=== PATIENT | male | born 1980 | race Caucasian/White ===

== ENCOUNTER 2019-05-29 21:22 | Emergency (ER) | payer OTHER ==
--- NOTE | 2019-05-29 22:03 | EDM.PDOC ---
ED HPI GENERAL MEDICAL PROBLEM - General Chief Complaint: General Stated Complaint: CHICKEN BONE IN THROAT Time Seen by Provider: 05/29/19 21:30 Source of Information: Reports: Patient History Limitations: Reports: Intoxication - History of Present Illness INITIAL COMMENTS - FREE TEXT/NARRATIVE: 39-year-old male presents to the emergency room with complaints of feeling like a chicken bone is stuck in his throat. He rates up earlier tonight and felt like a small chicken bone lodged in his throat. Patient has obviously been drinking quite heavily he admitted to the nurse earlier today that he has had at least 12 beers. His speech is slurred. He is cooperative. He denies any difficulties breathing, no shortness of breath. Onset: Today Duration: Constant Location: Reports: Neck Quality: Reports: Sharp Severity: Mild Improves with: Reports: None Worsens with: Reports: None Associated Symptoms: Reports: No Other Symptoms - Related Data Allergies Allergy/AdvReac Type Severity Reaction Status Date / Time amoxicillin Allergy Cannot Verified 05/29/19 21:26 Remember Social & Family History - Tobacco Use Smoking Status *Q: Current Every Day Smoker Years of Tobacco use: 20 Packs/Tins Daily: 2.5 - Caffeine Use Caffeine Use: Reports: Coffee - Alcohol Use Days Per Week of Alcohol Use: 7 Number of Drinks Per Day: 12 Total Drinks Per Week: 84 - Recreational Drug Use Recreational Drug Use: Yes ED ROS GENERAL - Review of Systems Review Of Systems: ROS reveals no pertinent complaints other than HPI. ED EXAM, GENERAL - Physical Exam Exam: See Below Exam Limited By: Intoxication General Appearance: Alert, WD/WN, No Apparent Distress Ears: Hearing Grossly Normal Throat/Mouth: Normal Inspection, Normal Lips, Normal Teeth, Normal Gums, Normal Oropharynx, Normal Voice, No Airway Compromise, Other (No evidence of foreign body is visualized in the back of the oropharynx.) Head: Atraumatic, Normocephalic Neck: Normal Inspection, Supple Respiratory/Chest: Lungs Clear Cardiovascular: Regular Rate, Rhythm Course - Vital Signs Last Recorded V/S: Last Vital Signs Temp 97.2 F 05/29/19 21:33 Pulse 90 05/29/19 21:33 Resp 16 05/29/19 21:33 BP 126/77 05/29/19 21:33 Pulse Ox 98 05/29/19 21:33 Departure - Departure Time of Disposition: 22:06 Disposition: Home, Self-Care 01 Condition: Good Clinical Impression: Foreign body sensation in throat - Discharge Information Instructions: Swallowed Foreign Body, Adult, [id number] Forms: ED Department Discharge - Assessment/Plan Assessment:: Foreign body sensation of the throat Plan: 1. Observation, patient is not experiencing any obstruction or breathing problems. If foreign body sensation continues into next week he will likely need to be seen by general surgeon for possible endoscopy. 2. His primary care is at [facility] and recommend routine follow- up next week if this continues to be problematic.
== END 2019-05-29 22:01 | disposition home or self-care (01) ==
LOC: KA.ED 21:22
DX: R09.89 Other specified symptoms and signs involving the circulatory and respiratory systems (principal); Z88.1 Allergy status to other antibiotic agents
CPT/HCPCS: 99282